=== PATIENT | female | born 1990 | race Hispanic/Latino ===

== ENCOUNTER 2018-03-09 13:08 | Emergency (ER) | payer SELFPAY ==
[2018-03-09] MEDS ORDERED: Dexamethasone 10 MG/ML VIAL ONE (13:25)
[2018-03-09] MEDS ORDERED: Ketorolac Tromethamine 60 MG/2 ML VIAL ONE (13:44)
== END 2018-03-09 13:53 | disposition home or self-care (01) ==
LOC: ERS 13:08
DX: B34.9 Viral infection, unspecified (principal)
CPT/HCPCS: 96372; J1100; J1885

== ENCOUNTER 2019-02-18 06:09 | Inpatient (IN) | payer OTHER ==
[2019-02-18] MEDS ORDERED: CEFAZOLIN 2 GM in Premix Bag 1 BAG IVPB SCH (06:14)
[2019-02-18] MEDS ORDERED: Butorphanol Tartrate 1 MG/ML VIAL SLOW IVP PRN ×2 (06:14→20:15)
[2019-02-18] MEDS ORDERED: hydrALAZINE 20 MG/ML VIAL SLOW IVP PRN (06:14)
[2019-02-18] MEDS ORDERED: Acetaminophen 500 MG TAB PO PRN (06:14)
[2019-02-18] MEDS ORDERED: Bicitra 30 ML UDCUP PO SCH (06:14)
[2019-02-18] MEDS ORDERED: Promethazine HCl 25 MG/ML VIAL IM PRN ×2 (06:14→08:11)
[2019-02-18] MEDS ORDERED: Ondansetron PF 4 MG/2 ML Vial IVP PRN ×2 (06:14→08:11)
[2019-02-18] MEDS ORDERED: Lactated Ringer's 1,000 ML IV SCH (06:14)
[2019-02-18 06:39] VITALS: BMI 42.3
[2019-02-18] MEDS ORDERED: Fentanyl 250 MCG/5 ML VIAL ONE (06:56)
[2019-02-18] MEDS ORDERED: MORPHINE 5 MG/10 ML PF VIAL ONE (06:57)
[2019-02-18] MEDS ORDERED: ePHEDrine/0.9% NaCl/PF SYRINGE 50 mg/10 ml ONE (06:57)
[2019-02-18] MEDS ORDERED: PHENYLEPHRINE-NS 100 MCG/ML 10 ML SYRINGE ONE (06:57)
[2019-02-18] MEDS ORDERED: Oxytocin 10 UNITS/ML VIAL ONE (06:57)
[2019-02-18] MEDS ORDERED: Dexamethasone 4 mg/ml Vial ONE (06:57)
[2019-02-18] MEDS ORDERED: Ketorolac Tromethamine 30 MG/ML VIAL ONE (06:57)
[2019-02-18] MEDS ORDERED: Ondansetron PF 4 MG/2 ML Vial ONE (06:58)
[2019-02-18] MEDS ORDERED: Fentanyl 100 MCG/2 ML VIAL ONE (07:07)
[2019-02-18 07:09] LABS: Hemoglobin 12.5 g/dL (12.0-16.0); Mean Corpuscular HGB CONC 34.3 g/dL (32.0-36.0); Mean Corpuscular Volume 81.6 fL (78.0-98.0); Mean Platelet Volume 9.7 fL (7.4-10.4); Platelet Count 214 thou/uL (130-400); RBC Distribution Width 12.5 % (11.5-14.5); Red Blood Cell (RBC) Count 4.48 mill/uL (4.20-5.40)
[2019-02-18 07:48] LABS: HBSAg Index 0.14 S/CO (0-0.99); Hep B Surf Ag Non-Reactive S/CO (NonReactive); Syphilis Antibody Nonreactive (Nonreactive); Syphilis Antibody Index 0.05 S/CO (<1.00 Non-Reactive)
[2019-02-18] MEDS ORDERED: Meperidine HCl/PF 25 MG/ML VIAL SLOW IVP PRN (08:11)
[2019-02-18] MEDS ORDERED: HYDROmorphone 2 MG/ML VIAL SLOW IVP PRN (08:11)
[2019-02-18] MEDS ORDERED: Naloxone HCl 0.4 mg/ml Vial IVP PRN ×2 (08:11)
[2019-02-18] MEDS ORDERED: Naloxone HCl 0.4 mg/ml Vial IV PRN (08:11)
[2019-02-18] MEDS ORDERED: Ondansetron HCl/PF 4 MG/2 ML Vial IVP PRN (08:11)
[2019-02-18] MEDS ORDERED: Promethazine HCl 25 MG SUPP PR PRN (08:11)
[2019-02-18] MEDS ORDERED: diphenhydrAMINE 50 MG/ML VIAL IVP PRN (08:11)
[2019-02-18] MEDS ORDERED: Ketorolac Tromethamine 30 MG/ML VIAL IVP PRN (08:11)
[2019-02-18] MEDS ORDERED: L&D-Morphine 4 MG/ML VIAL SLOW IVP PRN (08:11)
[2019-02-18] MEDS ORDERED: Communication Order-Pharmacy FS SCH (08:15)
--- NOTE | 2019-02-18 08:38 | HP ---
HISTORY OF PRESENT ILLNESS: This is a 29-year-old female, G3, P3-0-3 with the EDC of 02/23 at 39 weeks' gestation, being admitted for an elective repeat section. The patient has had one prior twin and a repeat . This course had been uncomplicated. She has been scheduled for an elective repeat section. PAST MEDICAL HISTORY: Unremarkable. ALLERGIES: TO PEN-G WHICH CAUSES A RASH. PAST SURGICAL HISTORY: Includes the two C-sections. The initial one was , performed by Dr. Mcdonough. The second one was performed by myself and Dr. Rhodes. FAMILY HISTORY: Unremarkable. SOCIAL HISTORY: The patient is single. She lives with her mother. Her twin lives at home. Her youngest child was adopted by her aunt. She works at [employer]. She does not smoke and does not drink. REVIEW OF SYSTEMS: As above. PHYSICAL EXAMINATION: VITAL SIGNS: Stable. Afebrile. Physical exam was done by Dr. Rhodes. LABORATORY DATA: GBS negative. HIV negative. 1-hour GCT normal. Hepatitis B negative. Rubella immune. Urine culture negative. Thyroid normal. O positive blood type. RPR negative. GC and chlamydia negative. Urine culture negative. ASSESSMENT: 1. Term . 2. Prior section x2. PLAN: 1. Routine Anesthesia orders. 2. Routine L and D orders. 3. Elective repeat section. Job ID: [id number]
[2019-02-18] MEDS ORDERED: diphenhydrAMINE 50 MG/ML VIAL ONE (09:53)
[2019-02-18] MEDS ORDERED: Methylergonovine 0.2 MG/ML VIAL IM PRN (10:13)
[2019-02-18] MEDS ORDERED: Lanolin Ointment 7 GM TUBE TOP PRN (10:13)
[2019-02-18] MEDS ORDERED: Bisacodyl 10 MG SUPP PR PRN (10:13)
[2019-02-18] MEDS ORDERED: Adacel (T-DAP) 0.5 ML SYRINGE IM ONE (10:13)
[2019-02-18] MEDS ORDERED: Misoprostol 200 MCG TAB PR PRN (10:13)
[2019-02-18] MEDS ORDERED: Acetaminophen 325 MG TAB PO PRN (10:13)
[2019-02-18] MEDS ORDERED: Prenatal Vitamin 1 TAB PO SCH (10:30)
[2019-02-18] MEDS ORDERED: Ferrous Sulfate 325 MG TAB PO SCH (10:30)
--- NOTE | 2019-02-18 12:35 | OP ---
DATE OF PROCEDURE: 02/18/2019 PREOPERATIVE DIAGNOSIS: Term . POSTOPERATIVE DIAGNOSIS: Term . PROCEDURE PERFORMED: Repeat low transverse section. MELTER CLERK: Mary Jane Freire MD. ANESTHESIA: Spinal. DESCRIPTION OF PROCEDURE: This 29-year-old female, G3, P3, at 39 weeks, taken to the operating room and placed in supine position. Abdomen prepped and draped sterilely. Pfannenstiel incision was made over the previous scar. The subcutaneous was dissected down. The fascia was opened without incident. Peritoneum was opened by blunt dissection. A low-transverse uterine incision was made. Fluid was noted to be clear. Delivered the baby from the vertex presentation with the use of a vacuum. Baby did breathe and cry vigorously upon delivery. Cord was clamped and cut. The placenta was delivered manually. The cervix was dilated. Low-transverse uterine incision was closed with #1 Monocryl. Abdomen was evacuated of all clots. Peritoneum was closed with 2-0 chromic, the fascia with 0 Vicryl, the subcutaneous with 2-0 chromic and the skin with lauren. Estimated blood loss was 500 mL. Mother and baby did very well. Job ID: [id number]
[2019-02-18] MEDS: Simethicone Chewable 80 MG TAB PO PRN (14:33)
[2019-02-18] MEDS: Ferrous Sulfate 325 MG TAB PO SCH (17:49)
[2019-02-18] MEDS ORDERED: Acetaminophen/Codeine 30-300mg Tablet PO PRN (20:15)
[2019-02-19] MEDS: HYDROcodone/Acetaminophen 5/325 mg Tablet PO PRN ×3 (00:34→17:43)
[2019-02-19 04:48] LABS: Mean Corpuscular HGB CONC 33.7 g/dL (32.0-36.0); Mean Corpuscular Hemoglobin 27.6 pg (27.0-31.0); Mean Platelet Volume 9.7 fL (7.4-10.4); Platelet Count 177 thou/uL (130-400); RBC Distribution Width 12.3 % (11.5-14.5); Red Blood Cell (RBC) Count 3.62 mill/uL (4.20-5.40); White Blood Cell (WBC) Count 11.3 thou/uL (4.8-10.8)
[2019-02-19] MEDS: Ferrous Sulfate 325 MG TAB PO SCH ×2 (08:20→09:44)
[2019-02-19] MEDS: Simethicone Chewable 80 MG TAB PO PRN ×2 (08:21→17:43)
[2019-02-19] MEDS: Prenatal Vitamin 1 TAB PO SCH (08:21)
--- NOTE | 2019-02-19 09:42 | PDOC.PP ---
Post Progress Note Post Day #: Repeat C/S - post-op day #1 Subjective: Doing well. Pain controlled. A little discomfort with urination this AM after the Galvan removed. Tolerating PO. Working on . PO intake tolerated: yes Flatus: yes Ambulation: yes Vital Signs (12 hours) Temp Pulse Resp BP Pulse Ox 02/19/19 08:36 98.8 F 71 20 117/65 95 02/19/19 00:30 98.6 F 72 18 119/60 Weight Weight 262 lb - Physical Examination General: NAD Cardiovascular: no m/r/g, RRR Respiratory: clear to auscultation bilaterally Abdominal: + bowel sounds, no distention, appropriately TTP Fundus firm & at: 2 cm below the umbilicus Extremities: negative homans (B) Skin: CS incision dry & intact Neurological: no gross focal deficits Psychiatric: A&Ox3 Result Diagrams: 02/19/19 04:18 Additional Labs: Post Labs Blood Type O POSITIVE 02/18/19 06:31 Hep Bs Antigen Non-Reactive S/CO (NonReactive) 02/18/19 06:31 (1) delivery delivered Code(s): O82 - ENCOUNTER FOR DELIVERY WITHOUT INDICATION Status: Acute - Assessment/Plan Routine post-op care Ambulate today Shower today May D/C IV Home tomorrow or depending how pt is feeling
[2019-02-19] MEDS: Ibuprofen 800 MG TAB PO PRN ×2 (13:18→21:32)
[2019-02-20] MEDS: HYDROcodone/Acetaminophen 5/325 mg Tablet PO PRN ×2 (04:08→09:53)
[2019-02-20] MEDS: Ibuprofen 800 MG TAB PO PRN (06:41)
[2019-02-20 08:16] VITALS: BP 131/75; TEMP 98
--- NOTE | 2019-02-20 08:53 | PDOC.PP ---
Post Progress Note Post Day #: 2 Subjective: Doing well. No complaints. Pain controlled. Wanting to go home today. PO intake tolerated: yes Flatus: yes Ambulation: yes Vital Signs (12 hours) Temp Pulse Resp BP Pulse Ox 02/20/19 07:19 98.0 F 75 12 131/75 98 02/20/19 04:08 98.1 F 84 18 128/64 96 02/20/19 00:52 98.0 F 83 18 128/68 97 Weight Weight 262 lb - Physical Examination General: NAD Cardiovascular: no m/r/g, RRR Respiratory: clear to auscultation bilaterally, non-labored breathing Abdominal: + bowel sounds, lochia, no distention, appropriately TTP Skin: CS incision dry & intact Neurological: no gross focal deficits Psychiatric: A&Ox3 Result Diagrams: 02/19/19 04:18 Additional Labs: Post Labs Blood Type O POSITIVE 02/18/19 06:31 Hep Bs Antigen Non-Reactive S/CO (NonReactive) 02/18/19 06:31 (1) delivery delivered Code(s): O82 - ENCOUNTER FOR DELIVERY WITHOUT INDICATION Status: Acute - Assessment/Plan Routine care D/C lauren Steri strips Home today F/U in 2 weeks
[2019-02-20] MEDS: Ferrous Sulfate 325 MG TAB PO SCH (09:52)
[2019-02-20] MEDS: Prenatal Vitamin 1 TAB PO SCH (09:52)
== END 2019-02-20 12:45 | disposition home or self-care (01) | DRG 788 ==
LOC: L&D 06:09 → 3SW 10:47
PROVIDERS: ADMIT Family Medicine; ATTEND Family Medicine
PROC: 10D00Z1 Extraction of Products of Conception, Low, Open Approach (ICD-10-PCS; principal; 2019-02-18)
DX: O34.211 Maternal care for low transverse scar from previous cesarean delivery (principal); Z3A.39 39 weeks gestation of pregnancy; Z37.0 Single live birth; Z88.0 Allergy status to penicillin
CPT/HCPCS: 36415; 51702; 85027; 86780; 86850; 86900; 86901; 87340; J1100; J1200; J1885; J2274; J2405; J2590; J3010